=== PATIENT | male | born 1945 | race Caucasian/White ===

== ENCOUNTER 2017-02-06 02:59 | Inpatient (IN) | payer OTHER, MEDICARE ==
[2017-02-06] VITALS (12 sets, daily range): BP systolic 107–166; BP diastolic 63–93
[~2017-02-06] VITALS: Ht 170.2 cm; Wt 74.0 kg
[2017-02-06 03:36] LABS: PLATELET COUNT 202 x10^3mcL (130-400)
[2017-02-06] MEDS ORDERED: LORAZEPAM0.5 MG PO (03:38)
[2017-02-06] MEDS ORDERED: ASPIR 8181 MG PO (03:39)
[2017-02-06] MEDS ORDERED: BUMETANIDE1 MG PO (03:39)
[2017-02-06] MEDS ORDERED: ATENOLOL50 MG PO (03:39)
[2017-02-06] MEDS ORDERED: CARVEDILOL6.25 M1 PO (03:39)
[2017-02-06] MEDS ORDERED: NITROGLYCERIN0.4 MG SL (03:39)
[2017-02-06 03:41] LABS: CALCIUM 8.1 mg/dL (8.5-10.1); CARBON DIOXIDE 37.9 mmol/L (21-32); CHLORIDE SERUM 105 mmol/L (98-107); CREATININE SERUM 0.9 mg/dL (0.7-1.3); GFR1 > 60 mL/min; GLUCOSE SERUM 123 mg/dL (74-106); POTASSIUM SERUM 4.2 mmol/L (3.5-5.1); SODIUM SERUM 148 mmol/L (136-145)
[2017-02-06 03:44] LABS: BASOPHIL % 3.2 % (0-2); RED CELL DISTRIBUTION WIDTH 14.9 % (11.5-14.5)
[2017-02-06 03:46] LABS: ALBUMIN 3.6 g/dL (3.4-5.0); ALKALINE PHOSPHATASE 98 U/L (46-116); ALT/SGPT 30 U/L (16-63); AST/SGOT 18 U/L (15-37); BILIRUBIN TOTAL 1.1 mg/dL (0.20-1.00); TOTAL PROTEIN, SERUM 7.9 g/dL (6.4-8.2)
[2017-02-06] MEDS ORDERED: PAROXETINE HCL20 M1 PO (05:03)
[2017-02-06 05:13] LABS: UA SPECIFIC GRAVITY >=1.030 (1.005-1.035); microscopic required? YES; urine erythrocyte 2+ (NEGATIVE)
[2017-02-06 05:42] LABS: AMPHETAMINE QUAL UR NONE DETECTED (NEG <=1000)
[2017-02-06 05:45] LABS: T3 TOTAL 0.87 ng/mL
[2017-02-06 05:50] LABS: FREE T4 1.3 ng/dL (0.76-1.46); FREE THYROXINE INDEX 2.6 ug/dL (1.4-4.5); T4(THYROXINE) 7.4 ug/dL (4.7-13.3)
[2017-02-07] VITALS (19 sets, daily range): BP systolic 90–141; BP diastolic 51–93
[2017-02-07 05:20] LABS: BASOPHIL % 0.4 % (0-2); PLATELET COUNT 195 x10^3mcL (130-400); RED CELL DISTRIBUTION WIDTH 14.3 % (11.5-14.5)
[2017-02-07 05:37] LABS: CALCIUM 8.1 mg/dL (8.5-10.1); CARBON DIOXIDE 34.7 mmol/L (21-32); CHLORIDE SERUM 104 mmol/L (98-107); CREATININE SERUM 0.8 mg/dL (0.7-1.3); GFR1 > 60 mL/min; GLUCOSE SERUM 166 mg/dL (74-106); MAGNESIUM 2.2 mg/dL (1.8-2.4); PHOSPHOROUS 3.3 mg/dL (2.5-4.9); POTASSIUM SERUM 3.3 mmol/L (3.5-5.1); SODIUM SERUM 143 mmol/L (136-145)
[2017-02-08] VITALS (16 sets, daily range): BP systolic 79–132; BP diastolic 53–82
[2017-02-08 05:33] LABS: BASOPHIL % 0.4 % (0-2); PLATELET COUNT 191 x10^3mcL (130-400)
[2017-02-08 05:42] LABS: CALCIUM 7.9 mg/dL (8.5-10.1); CHLORIDE SERUM 106 mmol/L (98-107); CREATININE SERUM 0.8 mg/dL (0.7-1.3); GFR1 > 60 mL/min; GLUCOSE SERUM 104 mg/dL (74-106); MAGNESIUM 2.3 mg/dL (1.8-2.4); PHOSPHOROUS 3.4 mg/dL (2.5-4.9); POTASSIUM SERUM 3.6 mmol/L (3.5-5.1); SODIUM SERUM 143 mmol/L (136-145)
[2017-02-08 05:51] LABS: RED CELL DISTRIBUTION WIDTH 15.1 % (11.5-14.5)
[2017-02-09] VITALS (17 sets, daily range): BP systolic 73–139; BP diastolic 53–76
[2017-02-09 04:58] LABS: BASOPHIL % 0.4 % (0-2); PLATELET COUNT 178 x10^3mcL (130-400)
[2017-02-09 05:14] LABS: CALCIUM 7.8 mg/dL (8.5-10.1); CARBON DIOXIDE 32.6 mmol/L (21-32); CHLORIDE SERUM 104 mmol/L (98-107); CREATININE SERUM 0.7 mg/dL (0.7-1.3); GFR1 > 60 mL/min; GLUCOSE SERUM 177 mg/dL (74-106); MAGNESIUM 2.2 mg/dL (1.8-2.4); PHOSPHOROUS 3.4 mg/dL (2.5-4.9); POTASSIUM SERUM 3.9 mmol/L (3.5-5.1); SODIUM SERUM 141 mmol/L (136-145)
[2017-02-10] VITALS (18 sets, daily range): BP systolic 78–139; BP diastolic 43–74
[2017-02-10 05:39] LABS: BASOPHIL % 1.2 % (0-2); PLATELET COUNT 169 x10^3mcL (130-400)
[2017-02-10 05:41] LABS: RED CELL DISTRIBUTION WIDTH 15.3 % (11.5-14.5)
[2017-02-10 05:52] LABS: MAGNESIUM 2.4 mg/dL (1.8-2.4); PHOSPHOROUS 3.7 mg/dL (2.5-4.9)
[2017-02-10 05:55] LABS: CALCIUM 7.8 mg/dL (8.5-10.1); CARBON DIOXIDE 35.1 mmol/L (21-32); CHLORIDE SERUM 105 mmol/L (98-107); CREATININE SERUM 0.6 mg/dL (0.7-1.3); GFR1 > 60 mL/min; GLUCOSE SERUM 112 mg/dL (74-106); POTASSIUM SERUM 3.4 mmol/L (3.5-5.1); SODIUM SERUM 142 mmol/L (136-145)
[2017-02-11] VITALS (14 sets, daily range): BP systolic 84–142; BP diastolic 48–86
[2017-02-11 05:50] LABS: BASOPHIL % 0.6 % (0-2); PLATELET COUNT 176 x10^3mcL (130-400)
[2017-02-11 05:51] LABS: RED CELL DISTRIBUTION WIDTH 15.4 % (11.5-14.5)
[2017-02-11 05:59] LABS: CALCIUM 8.1 mg/dL (8.5-10.1); CARBON DIOXIDE 36.6 mmol/L (21-32); CHLORIDE SERUM 104 mmol/L (98-107); CREATININE SERUM 0.6 mg/dL (0.7-1.3); GFR1 > 60 mL/min; GLUCOSE SERUM 132 mg/dL (74-106); MAGNESIUM 2.2 mg/dL (1.8-2.4); PHOSPHOROUS 3.3 mg/dL (2.5-4.9); POTASSIUM SERUM 3.9 mmol/L (3.5-5.1); SODIUM SERUM 140 mmol/L (136-145)
[2017-02-12] VITALS (13 sets, daily range): BP systolic 69–165; BP diastolic 45–71; Ht 170.2 cm; Wt 74.0 kg
[2017-02-12 05:37] LABS: BASOPHIL % 0.9 % (0-2); PLATELET COUNT 203 x10^3mcL (130-400)
[2017-02-12 05:38] LABS: CALCIUM 8.1 mg/dL (8.5-10.1); CARBON DIOXIDE 35.2 mmol/L (21-32); CHLORIDE SERUM 103 mmol/L (98-107); CREATININE SERUM 0.7 mg/dL (0.7-1.3); GFR1 > 60 mL/min; GLUCOSE SERUM 100 mg/dL (74-106); MAGNESIUM 2.1 mg/dL (1.8-2.4); PHOSPHOROUS 3.6 mg/dL (2.5-4.9); POTASSIUM SERUM 3.6 mmol/L (3.5-5.1); SODIUM SERUM 141 mmol/L (136-145)
[2017-02-12 05:43] LABS: RED CELL DISTRIBUTION WIDTH 14.8 % (11.5-14.5)
[2017-02-13] VITALS: BP 121/75
[2017-02-13 04:00] VITALS: BP 101/85
[2017-02-13 05:37] LABS: BASOPHIL % 0.4 % (0-2); PLATELET COUNT 182 x10^3mcL (130-400)
[2017-02-13 05:47] LABS: CALCIUM 8.3 mg/dL (8.5-10.1); CARBON DIOXIDE 34.7 mmol/L (21-32); CHLORIDE SERUM 103 mmol/L (98-107); CREATININE SERUM 0.6 mg/dL (0.7-1.3); GFR1 > 60 mL/min; GLUCOSE SERUM 104 mg/dL (74-106); MAGNESIUM 2.1 mg/dL (1.8-2.4); PHOSPHOROUS 3.8 mg/dL (2.5-4.9); POTASSIUM SERUM 3.5 mmol/L (3.5-5.1); SODIUM SERUM 141 mmol/L (136-145)
[2017-02-13 14:53] VITALS: BP 96/71
[2017-02-13 18:28] VITALS: BP 133/73
[2017-02-13 21:00] VITALS: BP 111/66
[2017-02-14 06:00] VITALS: BP 105/69
[2017-02-14 06:40] LABS: CALCIUM 8.3 mg/dL (8.5-10.1); CARBON DIOXIDE 35.3 mmol/L (21-32); CHLORIDE SERUM 104 mmol/L (98-107); CREATININE SERUM 0.6 mg/dL (0.7-1.3); GFR1 > 60 mL/min; GLUCOSE SERUM 104 mg/dL (74-106); MAGNESIUM 2.3 mg/dL (1.8-2.4); PHOSPHOROUS 3.5 mg/dL (2.5-4.9); POTASSIUM SERUM 3.8 mmol/L (3.5-5.1); SODIUM SERUM 142 mmol/L (136-145)
[2017-02-14 06:41] LABS: PLATELET COUNT 198 x10^3mcL (130-400); RED CELL DISTRIBUTION WIDTH 13.5 % (11.5-14.5)
[2017-02-14 07:01] LABS: BASOPHIL % 3.6 % (0-2)
[2017-02-14 09:27] VITALS: BP 98/61
[2017-02-14 13:57] VITALS: BP 118/78
[2017-02-14 18:04] VITALS: BP 131/74
[2017-02-14 21:36] VITALS: BP 108/57
[2017-02-15 05:50] VITALS: BP 107/68
[2017-02-15 06:07] LABS: BASOPHIL % 1.2 % (0-2); PLATELET COUNT 210 x10^3mcL (130-400); RED CELL DISTRIBUTION WIDTH 14.3 % (11.5-14.5)
[2017-02-15 06:27] LABS: CALCIUM 8.5 mg/dL (8.5-10.1); CARBON DIOXIDE 37.3 mmol/L (21-32); CHLORIDE SERUM 103 mmol/L (98-107); CREATININE SERUM 0.7 mg/dL (0.7-1.3); GFR1 > 60 mL/min; GLUCOSE SERUM 108 mg/dL (74-106); MAGNESIUM 2.1 mg/dL (1.8-2.4); PHOSPHOROUS 3.2 mg/dL (2.5-4.9); POTASSIUM SERUM 3.6 mmol/L (3.5-5.1); SODIUM SERUM 142 mmol/L (136-145)
[2017-02-15 09:18] VITALS: BP 101/64
[2017-02-15] MEDS ORDERED: LEVAQUIN750 MG PO (12:25)
[2017-02-15] MEDS ORDERED: LAC PO (12:26)
[2017-02-15] MEDS ORDERED: CLEOCIN HCL300 MG PO (12:26)
[2017-02-15] MEDS ORDERED: PULMICORT180 MCG/Ac INH (12:28)
[2017-02-15 13:31] VITALS: BP 101/64
[2017-02-15 14:05] VITALS: BP 127/75
== END 2017-02-15 16:45 | disposition home health service (06) | DRG 130 ==
LOC: ED 02:59 → IC 04:48 → DU 04:48 → IC 13:52 → DU 02-13 09:06
PROVIDERS: Emergency Medicine; Family Medicine; ADMIT Family Medicine
PROC: 0BH18EZ Insertion of Endotracheal Airway into Trachea, Via Natural or Artificial Opening Endoscopic (ICD-10-PCS; principal; 2017-02-06)
PROC: 5A1955Z Respiratory Ventilation, Greater than 96 Consecutive Hours (ICD-10-PCS; 2017-02-06)
PROC: 5A09457 Assistance with Respiratory Ventilation, 24-96 Consecutive Hours, Continuous Positive Airway Pressure (ICD-10-PCS; 2017-02-06)
PROC: 02HV33Z Insertion of Infusion Device into Superior Vena Cava, Percutaneous Approach (ICD-10-PCS; 2017-02-06)
DX: J69.0 Pneumonitis due to inhalation of food and vomit (principal); N17.0 Acute kidney failure with tubular necrosis; E87.2 Acidosis; E43 Unspecified severe protein-calorie malnutrition; J96.21 Acute and chronic respiratory failure with hypoxia; E87.0 Hyperosmolality and hypernatremia; E87.4 Mixed disorder of acid-base balance; I50.43 Acute on chronic combined systolic (congestive) and diastolic (congestive) heart failure; J45.901 Unspecified asthma with (acute) exacerbation; J96.22 Acute and chronic respiratory failure with hypercapnia; G83.24 Monoplegia of upper limb affecting left nondominant side; I11.0 Hypertensive heart disease with heart failure; F41.9 Anxiety disorder, unspecified; F32.9 Major depressive disorder, single episode, unspecified; F79 Unspecified intellectual disabilities; G40.909 Epilepsy, unspecified, not intractable, without status epilepticus; E83.51 Hypocalcemia; E02 Subclinical iodine-deficiency hypothyroidism; E87.6 Hypokalemia; V03.0 Pedestrian injured in collision with car, pick-up truck or van in nontraffic accident; B95.61 Methicillin susceptible Staphylococcus aureus infection as the cause of diseases classified elsewhere; Z87.820 Personal history of traumatic brain injury; Z79.82 Long term (current) use of aspirin; Z79.899 Other long term (current) drug therapy; Z68.25 Body mass index [BMI] 25.0-25.9, adult
CPT/HCPCS: 36600; 80307; 83880; 84439; 87804; 92610; 97110-GP; 97116-GP; 97530-GP; A4628; C9113; J0461; J1642; J1644; J1956; J2060; J2250; J2405; J2704; J2920; J2930; J3475; J3480; J3490; J7030; J7040; J7050; J7613; J7620; J7626; J7644; Q0092

== ENCOUNTER 2017-11-01 17:21 | Inpatient (IN) | payer OTHER, MEDICARE ==
[~2017-11-01] VITALS: Ht 152.4 cm; Wt 77.2 kg
[~2017-11-01 17:21] MED LIST: ASPIR 8181 MG PO; ATENOLOL50 MG PO; BUMETANIDE1 MG PO; CARVEDILOL6.25 M1 PO; CLEOCIN HCL300 MG PO; LAC PO; LEVAQUIN750 MG PO; LORAZEPAM0.5 MG PO; NITROGLYCERIN0.4 MG SL; PAROXETINE HCL20 M1 PO; PULMICORT180 MCG/Ac INH
[2017-11-01 22:05] LABS: PLATELET COUNT 191 x10^3mcL (130-400); RED CELL DISTRIBUTION WIDTH 14.3 % (11.5-14.5)
[2017-11-01 22:13] LABS: BILIRUBIN TOTAL 0.85 mg/dL (0.20-1.00); CALCIUM 8.4 mg/dL (8.5-10.1); CARBON DIOXIDE 27.9 mmol/L (21-32); POTASSIUM SERUM 4.1 mmol/L (3.5-5.1)
[2017-11-01 22:17] LABS: ALBUMIN 2.8 g/dL (3.4-5.0)
[2017-11-01 22:18] LABS: CREATININE SERUM 5.2 mg/dL (0.7-1.3)
[2017-11-01 22:19] LABS: CK-MB 2.1 ng/mL (0-3.6)
[2017-11-01 22:37] LABS: UA SPECIFIC GRAVITY 1.025 (1.005-1.035); microscopic required? YES; urine erythrocyte 2+ (NEGATIVE)
[2017-11-01 23:23] LABS: BAND NEUTROPHIL 13 % (0-10); METAMYELOCTE 2 % (0-2); MONOCYTE 4 % (0-7); SEGMENTED NEUTROPHILS 71 % (37-75)
[2017-11-01] MEDS ORDERED: LORAZEPAM0.5 MG PO (23:23)
[2017-11-01] MEDS ORDERED: CARVEDILOL6.25 M1 PO (23:24)
[2017-11-01] MEDS ORDERED: MONTELUKAST SOD10 M1 PO (23:24)
[2017-11-01 23:25] LABS: PLATELET MORPHOLOGY LARGE PLATELET SEEN; rbc morphology (normal/abnorm) NORMAL (NORMAL)
[2017-11-01] MEDS ORDERED: CEPHALEXIN500 MG PO (23:27)
[2017-11-02] VITALS (14 sets, daily range): BP systolic 54–140; BP diastolic 23–107; Ht 152.4 cm; Wt 77.2 kg
[2017-11-02 00:57] LABS: MAGNESIUM 1.9 mg/dL (1.8-2.4); PHOSPHOROUS 4.8 mg/dL (2.5-4.9)
[2017-11-02 01:01] LABS: FREE T4 1.33 ng/dL (0.76-1.46); FREE THYROXINE INDEX 2.8 ug/dL (1.4-4.5); T4(THYROXINE) 8.1 ug/dL (4.7-13.3)
[2017-11-02 01:05] LABS: CHOLESTEROL/HDL RATIO 4.5
[2017-11-02 01:53] LABS: T3 TOTAL 0.66 ng/mL
[2017-11-02 03:30] LABS: AMPHETAMINE QUAL UR NONE DETECTED (NEG <=1000)
[2017-11-02 06:53] LABS: PLATELET COUNT 168 x10^3mcL (130-400)
[2017-11-02 06:58] LABS: CARBON DIOXIDE 29.7 mmol/L (21-32); MAGNESIUM 2.1 mg/dL (1.8-2.4); PHOSPHOROUS 5.6 mg/dL (2.5-4.9); POTASSIUM SERUM 4.9 mmol/L (3.5-5.1)
[2017-11-02 07:05] LABS: RED CELL DISTRIBUTION WIDTH 14.6 % (11.5-14.5)
[2017-11-02 07:08] LABS: CREATININE SERUM 5.4 mg/dL (0.7-1.3)
[2017-11-02 14:30] LABS: ATYPICAL LYMPH 3 %; BAND NEUTROPHIL 25 % (0-10); MONOCYTE 6 % (0-7); SEGMENTED NEUTROPHILS 56 % (37-75)
[2017-11-02 14:31] LABS: BASOPHIL 0 % (0-2); METAMYELOCTE 2 % (0-2); MYELOCYTE 1 % (0-2); rbc morphology (normal/abnorm) NORMAL (NORMAL)
[2017-11-02 14:32] LABS: PLATELET MORPHOLOGY LARGE PLATELET SEEN
[2017-11-02 17:37] LABS: UA SPECIFIC GRAVITY 1.025 (1.005-1.035); microscopic required? YES; urine erythrocyte 1+ (NEGATIVE)
[2017-11-03] VITALS (18 sets, daily range): BP systolic 101–155; BP diastolic 65–96
[2017-11-03 05:23] LABS: PLATELET COUNT 160 x10^3mcL (130-400); RED CELL DISTRIBUTION WIDTH 14.3 % (11.5-14.5)
[2017-11-03 05:32] LABS: CALCIUM 7.5 mg/dL (8.5-10.1); CARBON DIOXIDE 21.6 mmol/L (21-32); MAGNESIUM 2.2 mg/dL (1.8-2.4); PHOSPHOROUS 5.8 mg/dL (2.5-4.9); POTASSIUM SERUM 4.4 mmol/L (3.5-5.1)
[2017-11-03 05:37] LABS: CREATININE SERUM 4.5 mg/dL (0.7-1.3)
[2017-11-03 06:03] LABS: BAND NEUTROPHIL 11 % (0-10); BASOPHIL 0 % (0-2); MONOCYTE 3 % (0-7); SEGMENTED NEUTROPHILS 78 % (37-75)
[2017-11-03 06:05] LABS: rbc morphology (normal/abnorm) NORMAL (NORMAL)
[2017-11-04] VITALS (18 sets, daily range): BP systolic 98–172; BP diastolic 53–105
[2017-11-04 05:28] LABS: PLATELET COUNT 166 x10^3mcL (130-400); RED CELL DISTRIBUTION WIDTH 14.4 % (11.5-14.5)
[2017-11-04 05:49] LABS: CALCIUM 8.2 mg/dL (8.5-10.1); CARBON DIOXIDE 26.6 mmol/L (21-32); CREATININE SERUM 2.6 mg/dL (0.7-1.3); MAGNESIUM 2.6 mg/dL (1.8-2.4); PHOSPHOROUS 4.2 mg/dL (2.5-4.9); POTASSIUM SERUM 3.5 mmol/L (3.5-5.1)
[2017-11-04 06:00] LABS: BAND NEUTROPHIL 4 % (0-10); METAMYELOCTE 1 % (0-2); MONOCYTE 7 % (0-7); SEGMENTED NEUTROPHILS 85 % (37-75)
[2017-11-04 06:01] LABS: PLATELET MORPHOLOGY LARGE PLATELET SEEN; rbc morphology (normal/abnorm) NORMAL (NORMAL)
[2017-11-05] VITALS (17 sets, daily range): BP systolic 103–175; BP diastolic 62–152
[2017-11-05 05:55] LABS: BASOPHIL % 0.6 % (0-2); PLATELET COUNT 174 x10^3mcL (130-400)
[2017-11-05 06:02] LABS: CALCIUM 8.4 mg/dL (8.5-10.1); CARBON DIOXIDE 28.7 mmol/L (21-32); CHLORIDE SERUM 114 mmol/L (98-107); CREATININE SERUM 1.2 mg/dL (0.7-1.3); GFR1 > 60 mL/min; GLUCOSE SERUM 154 mg/dL (74-106); MAGNESIUM 2.4 mg/dL (1.8-2.4); PHOSPHOROUS 2.9 mg/dL (2.5-4.9); POTASSIUM SERUM 3.6 mmol/L (3.5-5.1)
[2017-11-05 06:10] LABS: SODIUM SERUM 149 mmol/L (136-145)
[2017-11-05 06:19] LABS: RED CELL DISTRIBUTION WIDTH 14.9 % (11.5-14.5)
[2017-11-06] VITALS (15 sets, daily range): BP systolic 89–118; BP diastolic 53–70
[2017-11-06 05:34] LABS: BASOPHIL % 0.4 % (0-2); PLATELET COUNT 179 x10^3mcL (130-400)
[2017-11-06 05:44] LABS: RED CELL DISTRIBUTION WIDTH 14.8 % (11.5-14.5)
[2017-11-06 05:46] LABS: CALCIUM 8.1 mg/dL (8.5-10.1); CHLORIDE SERUM 109 mmol/L (98-107); CREATININE SERUM 0.9 mg/dL (0.7-1.3); GFR1 > 60 mL/min; GLUCOSE SERUM 164 mg/dL (74-106); MAGNESIUM 1.9 mg/dL (1.8-2.4); PHOSPHOROUS 2.7 mg/dL (2.5-4.9); POTASSIUM SERUM 3.3 mmol/L (3.5-5.1); SODIUM SERUM 146 mmol/L (136-145)
[2017-11-07] VITALS (14 sets, daily range): BP systolic 72–121; BP diastolic 46–73
[2017-11-07 05:19] LABS: BASOPHIL % 0.3 % (0-2); PLATELET COUNT 207 x10^3mcL (130-400); RED CELL DISTRIBUTION WIDTH 14.2 % (11.5-14.5)
[2017-11-07 05:22] LABS: CALCIUM 7.7 mg/dL (8.5-10.1); CARBON DIOXIDE 31.3 mmol/L (21-32); CHLORIDE SERUM 104 mmol/L (98-107); CREATININE SERUM 0.9 mg/dL (0.7-1.3); GFR1 > 60 mL/min; GLUCOSE SERUM 130 mg/dL (74-106); POTASSIUM SERUM 3.6 mmol/L (3.5-5.1); SODIUM SERUM 138 mmol/L (136-145)
[2017-11-08 03:38] VITALS: BP 104/65
[2017-11-08 05:24] LABS: PLATELET COUNT 241 x10^3mcL (130-400); RED CELL DISTRIBUTION WIDTH 14.3 % (11.5-14.5)
[2017-11-08 05:47] LABS: CALCIUM 8.2 mg/dL (8.5-10.1); CARBON DIOXIDE 32.3 mmol/L (21-32); CHLORIDE SERUM 105 mmol/L (98-107); CREATININE SERUM 0.8 mg/dL (0.7-1.3); GFR1 > 60 mL/min; GLUCOSE SERUM 123 mg/dL (74-106); MAGNESIUM 1.9 mg/dL (1.8-2.4); PHOSPHOROUS 3.4 mg/dL (2.5-4.9); SODIUM SERUM 140 mmol/L (136-145)
[2017-11-08 06:04] LABS: ATYPICAL LYMPH 1 %; BAND NEUTROPHIL 4 % (0-10); MONOCYTE 5 % (0-7); SEGMENTED NEUTROPHILS 68 % (37-75)
[2017-11-08 06:05] LABS: PLATELET MORPHOLOGY PLATELETS NORMAL
[2017-11-08 06:06] LABS: rbc morphology (normal/abnorm) NORMAL (NORMAL)
[2017-11-08 08:00] VITALS: BP 105/62
[2017-11-08 11:58] VITALS: BP 128/82
[2017-11-08 13:10] VITALS: BP 102/66
[2017-11-08 17:10] VITALS: BP 100/71
[2017-11-08 20:38] VITALS: BP 97/67
[2017-11-09 06:01] VITALS: BP 115/68
[2017-11-09 09:55] VITALS: BP 86/56
[2017-11-09 10:58] LABS: BASOPHIL % 0.1 % (0-2); PLATELET COUNT 260 x10^3mcL (130-400)
[2017-11-09 11:20] LABS: ALBUMIN 2.3 g/dL (3.4-5.0); ALKALINE PHOSPHATASE 55 U/L (46-116); ALT/SGPT 29 U/L (16-63); AST/SGOT 22 U/L (15-37); BILIRUBIN TOTAL 0.73 mg/dL (0.20-1.00); CALCIUM 8.1 mg/dL (8.5-10.1); CARBON DIOXIDE 32.9 mmol/L (21-32); CHLORIDE SERUM 103 mmol/L (98-107); GFR1 > 60 mL/min; GLUCOSE SERUM 165 mg/dL (74-106); POTASSIUM SERUM 3.8 mmol/L (3.5-5.1); SODIUM SERUM 140 mmol/L (136-145); TOTAL PROTEIN, SERUM 7.8 g/dL (6.4-8.2)
[2017-11-09 12:02] VITALS: BP 97/63
[2017-11-09 14:00] VITALS: BP 97/64
[2017-11-09 17:43] VITALS: BP 117/70
[2017-11-09 22:00] VITALS: BP 115/71
[2017-11-10 05:36] VITALS: BP 119/80
[2017-11-10 06:33] LABS: CALCIUM 8.2 mg/dL (8.5-10.1); CARBON DIOXIDE 32.7 mmol/L (21-32); CHLORIDE SERUM 102 mmol/L (98-107); CREATININE SERUM 0.8 mg/dL (0.7-1.3); GFR1 > 60 mL/min; GLUCOSE SERUM 116 mg/dL (74-106); MAGNESIUM 1.8 mg/dL (1.8-2.4); POTASSIUM SERUM 3.5 mmol/L (3.5-5.1); SODIUM SERUM 138 mmol/L (136-145)
[2017-11-10 06:36] LABS: BASOPHIL % 0.3 % (0-2); PLATELET COUNT 285 x10^3mcL (130-400); RED CELL DISTRIBUTION WIDTH 13.8 % (11.5-14.5)
[2017-11-10 08:35] VITALS: BP 99/65
[2017-11-10 09:45] VITALS: BP 97/65
[2017-11-10 12:43] VITALS: BP 101/67
[2017-11-10 20:40] VITALS: BP 107/75
[2017-11-11 05:43] VITALS: BP 127/81
[2017-11-11 07:00] LABS: BASOPHIL % 0.3 % (0-2); PLATELET COUNT 287 x10^3mcL (130-400); RED CELL DISTRIBUTION WIDTH 13.7 % (11.5-14.5)
[2017-11-11 07:01] LABS: CALCIUM 8.5 mg/dL (8.5-10.1); CARBON DIOXIDE 30.1 mmol/L (21-32); CHLORIDE SERUM 104 mmol/L (98-107); CREATININE SERUM 0.8 mg/dL (0.7-1.3); GFR1 > 60 mL/min; GLUCOSE SERUM 121 mg/dL (74-106); MAGNESIUM 1.9 mg/dL (1.8-2.4); SODIUM SERUM 138 mmol/L (136-145)
[2017-11-11 09:08] VITALS: BP 91/53
[2017-11-11] MEDS ORDERED: LAC PO (12:04)
[2017-11-11] MEDS ORDERED: LEVAQUIN750 MG PO (12:04)
[2017-11-11] MEDS ORDERED: CLEOCIN HCL300 MG PO (12:04)
[2017-11-11] MEDS ORDERED: GOOD SENSE ASPI81 M3 PO (12:13)
[2017-11-11] MEDS ORDERED: LIPI10 PO (12:13)
[2017-11-11 12:16] VITALS: BP 103/64
[2017-11-11 17:23] VITALS: BP 100/69
[2017-11-11 17:43] VITALS: BP 100/69
== END 2017-11-11 20:53 | DRG 720 ==
LOC: ED 17:21 → IC 23:06 → DU 23:06 → IC 11-02 00:20 → DU 11-08 13:15
PROVIDERS: Emergency Medicine; Family Medicine; Internal Medicine Nephrology; Student in an Organized Health Care Education/Training Program; ADMIT Family Medicine
PROC: 5A1955Z Respiratory Ventilation, Greater than 96 Consecutive Hours (ICD-10-PCS; principal; 2017-11-01)
PROC: 0BH17EZ Insertion of Endotracheal Airway into Trachea, Via Natural or Artificial Opening (ICD-10-PCS; 2017-11-02)
PROC: 05HM33Z Insertion of Infusion Device into Right Internal Jugular Vein, Percutaneous Approach (ICD-10-PCS; 2017-11-03)
PROC: B5131ZA Fluoroscopy of Right Jugular Veins using Low Osmolar Contrast, Guidance (ICD-10-PCS; 2017-11-03)
DX: A41.9 Sepsis, unspecified organism (principal); N17.0 Acute kidney failure with tubular necrosis; J96.01 Acute respiratory failure with hypoxia; E43 Unspecified severe protein-calorie malnutrition; J69.0 Pneumonitis due to inhalation of food and vomit; E86.0 Dehydration; N39.0 Urinary tract infection, site not specified; E87.1 Hypo-osmolality and hyponatremia; I12.0 Hypertensive chronic kidney disease with stage 5 chronic kidney disease or end stage renal disease; L03.115 Cellulitis of right lower limb; N18.5 Chronic kidney disease, stage 5; R73.03 Prediabetes; R80.9 Proteinuria, unspecified; R31.9 Hematuria, unspecified; F41.9 Anxiety disorder, unspecified; E66.9 Obesity, unspecified; Z68.34 Body mass index [BMI] 34.0-34.9, adult; J45.909 Unspecified asthma, uncomplicated; W18.39XA Other fall on same level, initial encounter; Y93.89 Activity, other specified; Y92.89 Other specified places as the place of occurrence of the external cause; Y99.8 Other external cause status; S62.91XA Unspecified fracture of right hand, initial encounter for closed fracture; F79 Unspecified intellectual disabilities; R65.20 Severe sepsis without septic shock
CPT/HCPCS: 36556; 36600; 82962; 83880; 84439; 97110-GP; 97116-GP; 97530-GP; A4628; J0171; J0696; J1642; J1815; J1940; J1956; J2543; J2704; J2920; J2930; J3010; J3480; J3490; J7030; J7042; J7070; J7620; J7626; Q0092